=== PATIENT | male | born 1945 | race Caucasian/White ===

== ENCOUNTER 2017-05-26 12:29 | Emergency (ER) | payer OTHER ==
[2017-05-26 14:06] LABS: Absolute Lymphocytes (CBC) 1.6 K/uL (0.7-4.9); Absolute Monocytes 0.4 K/uL (0.1-1.3); Absolute Neutrophil 4.1 K/uL (1.8-8.0); Eosinophils % 1.1 % (0-4.4); Hematocrit 44.3 % (39.6-49.0); Lymphocytes % 25.2 % (15.3-44.8); MCV 92.1 fL (80-100); MPV 8.8 fL (7.6-11.3); RBC Red Blood Cell Count 4.81 M/uL (4.33-5.43)
[2017-05-26 14:12] LABS: Potassium 3.6 mEq/L (3.6-5.0)
--- NOTE | 2017-05-26 15:25 | ER ---
Nurse's Notes [facility] Name: Bryon Escobar Age: 71 yrs Sex: Male : 1945 Arrival Date: 05/26/2017 Time: 12:39 Bed 13 Private MD: Diagnosis: Essential (primary) hypertension Presentation: 05/26 12:54 Presenting complaint: Patient states: [facility] were tw2 thinking i was having a heart attack". Transition of care: patient was not received from another setting of care. Onset of symptoms was May 26, 2017. Care prior to arrival: None. 12:54 Method Of Arrival: Wheelchair tw2 12:54 Acuity: ALEJANDRA 3 tw2 Historical: - Allergies: 12:57 PENICILLINS; tw2 - Home Meds: 12:57 hydrochlorothiazide 25 mg Oral tab 1 tab once daily [Active]; finasteride 5 mg oral tab tw2 1 tab once daily [Active]; - PMHx: 12:57 Hypertension; sebaceous cyst; bph; tw2 - Immunization history:: Adult Immunizations up to date. - Social history:: Smoking status: Patient uses tobacco products, smokes one-half pack cigarettes per day. Screenin:47 Abuse screen: Denies threats or abuse. Nutritional screening: No deficits noted. ap3 Tuberculosis screening: No symptoms or risk factors identified. Fall Risk None identified. Assessment: 13:46 General: Appears in no apparent distress. slender, Behavior is calm, cooperative. Pain: ap3 Denies pain. Neuro: Level of Consciousness is awake, alert, obeys commands, Oriented to person, place, time, situation. Cardiovascular: Heart tones S1 S2 present Patient's skin is warm and dry. Respiratory: Airway is patent Breath sounds are clear bilaterally. GI: Bowel sounds present X 4 quads. : Reports urgency, since 05/23/2017. EENT: No signs and/or symptoms were reported regarding the EENT system. Derm: Skin is pink, warm \\T\\ dry. Bruising that is dark purple, on right arm and left arm. Musculoskeletal: No signs and/or symptoms reported regarding the musculoskeletal system. 14:30 Reassessment: Patient resting in bed, eyes closed. Respirations even and unlabored. ap3 side rails up X's 1. Call cloud within reach. Will continue to monitor. 15:15 Reassessment: Patient is alert, oriented x 3, equal unlabored respirations, skin ap3 warm/dry/pink. Vital Signs: 12:55 BP 160 / 92; Pulse 57; Resp 16; Temp 98.0(O); Pulse Ox 99% on R/A; Weight 62.14 kg (M); tw2 Height 5 ft. 7 in. (170.18 cm); Pain 0/10; 13:59 BP 173 / 94; Pulse 58; Pulse Ox 100% on R/A; ap3 15:37 BP 166 / 94; Pulse 55; Pulse Ox 97% on R/A; ap3 12:55 Body Mass Index 21.46 (62.14 kg, 170.18 cm) tw2 ED Course: 12:39 Patient arrived in ED. mr 12:55 Triage completed. tw2 12:58 Arm band placed on. tw2 13:00 Andrez Pérez PA is PHCP. jr8 13:00 Clem Devine MD is Attending Physician. jr8 13:21 Vik Joyner, NANDA is Primary Nurse. ae1 13:47 Patient has correct armband on for positive identification. Call light in reach. Side ap3 rails up X 1. Pulse ox on. NIBP on. 13:49 Missed attempt(s): 20 gauge in left antecubital area. Bleeding controlled, band aid ap3 applied, catheter tip intact. 13:52 Basic Metabolic Panel Sent. ap3 13:52 CBC with Diff Sent. ap3 13:52 Troponin (emerg Dept Use Only) Sent. ap3 15:06 EKG done, by bomb technician. reviewed by Andrez VASQUEZ. at1 15:37 No provider procedures requiring assistance completed. Patient did not have IV access ap3 during this emergency room visit. Administered Medications: No medications were administered Outcome: 15:24 Discharge ordered by . jr8 15:38 Discharged to home ambulatory. ap3 15:38 Condition: stable 15:38 Discharge instructions given to patient, Instructed on discharge instructions, follow up and referral plans. Demonstrated understanding of instructions. 15:47 Patient left the ED. ap3 16:07 Attestation : I agree with the charting done by Luz Maria Ribera, director industrial nursing. . ae1 Signatures: Jillian Bradley Josh, PA PA jr8 Luz Maria birmingham, pot annealer EKG Tat1 Alyson Smith, RN RN tw2 Vik Joyner RN RN ae1 Luz Maria Ribera ap3
--- NOTE | 2017-05-26 15:25 | EDPHYS ---
Physician Documentation [facility] Name: Bryon Escobar Age: 71 yrs Sex: Male : 1945 Arrival Date: 05/26/2017 Time: 12:39 Bed 13 Private MD: ED Physician Clem Devine HPI: 05/26 14:35 This 71 yrs old Male presents to ER via Wheelchair with complaints of jr8 Abnormal Lab Results. 14:35 Patient was at [place] for routine f/u and blood work. Was found to be hypertensive. Denies jr8 chest pain, shortness of breath, nausea, dizziness, weakness, numbness, or tingling. Was sent to ED here because they were concerned that he had EKG changes indicative of an DE. Onset: The symptoms/episode began/occurred acutely, today. Severity of symptoms: At their worst the symptoms were mild in the emergency department the symptoms are unchanged. The patient has not experienced similar symptoms in the past. The patient has been recently seen by a physician:. Historical: - Allergies: 12:57 PENICILLINS; tw2 - Home Meds: 12:57 hydrochlorothiazide 25 mg Oral tab 1 tab once daily [Active]; finasteride 5 mg oral tab tw2 1 tab once daily [Active]; - PMHx: 12:57 Hypertension; sebaceous cyst; bph; tw2 - Immunization history:: Adult Immunizations up to date. - Social history:: Smoking status: Patient uses tobacco products, smokes one-half pack cigarettes per day. ROS: 14:35 Eyes: Negative for injury, pain, redness, and discharge, ENT: Negative for injury, jr8 pain, and discharge, Neck: Negative for injury, pain, and swelling, Cardiovascular: Negative for chest pain, palpitations, and edema, Respiratory: Negative for shortness of breath, cough, wheezing, and pleuritic chest pain, Abdomen/GI: Negative for abdominal pain, nausea, vomiting, diarrhea, and constipation, Back: Negative for injury and pain, MS/Extremity: Negative for injury and deformity, Skin: Negative for injury, rash, and discoloration, Neuro: Negative for headache, weakness, numbness, tingling, and seizure. Exam: 14:35 Head/Face: Normocephalic, atraumatic. Eyes: Pupils equal round and reactive to light, jr8 extra-ocular motions intact. Lids and lashes normal. Conjunctiva and sclera are non-icteric and not injected. Cornea within normal limits. Periorbital areas with no swelling, redness, or edema. ENT: Nares patent. No nasal discharge, no septal abnormalities noted. Tympanic membranes are normal and external auditory canals are clear. Oropharynx with no redness, swelling, or masses, exudates, or evidence of obstruction, uvula midline. Mucous membranes moist. Neck: Trachea midline, no thyromegaly or masses palpated, and no cervical lymphadenopathy. Supple, full range of motion without nuchal rigidity, or vertebral point tenderness. No Meningismus. Chest/axilla: Normal chest wall appearance and motion. Nontender with no deformity. No lesions are appreciated. Cardiovascular: Regular rate and rhythm with a normal S1 and S2. No gallops, murmurs, or rubs. Normal PMI, no JVD. No pulse deficits. Respiratory: Lungs have equal breath sounds bilaterally, clear to auscultation and percussion. No rales, rhonchi or wheezes noted. No increased work of breathing, no retractions or nasal flaring. Abdomen/GI: Soft, non-tender, with normal bowel sounds. No distension or tympany. No guarding or rebound. No evidence of tenderness throughout. Back: No spinal tenderness. No costovertebral tenderness. Full range of motion. Skin: Warm, dry with normal turgor. Normal color with no rashes, no lesions, and no evidence of cellulitis. MS/ Extremity: Pulses equal, no cyanosis. Neurovascular intact. Full, normal range of motion. Neuro: Awake and alert, GCS 15, oriented to person, place, time, and situation. Cranial nerves II-XII grossly intact. Motor strength 5/5 in all extremities. Sensory grossly intact. Cerebellar exam normal. Normal gait. Vital Signs: 12:55 BP 160 / 92; Pulse 57; Resp 16; Temp 98.0(O); Pulse Ox 99% on R/A; Weight 62.14 kg (M); tw2 Height 5 ft. 7 in. (170.18 cm); Pain 0/10; 13:59 BP 173 / 94; Pulse 58; Pulse Ox 100% on R/A; ap3 15:37 BP 166 / 94; Pulse 55; Pulse Ox 97% on R/A; ap3 12:55 Body Mass Index 21.46 (62.14 kg, 170.18 cm) tw2 MDM: 13:00 Patient medically screened. jr8 14:35 Data reviewed: vital signs, nurses notes, lab test result(s), EKG, radiologic studies, jr8 plain films. Data interpreted: Pulse oximetry: on room air is 100 %. Interpretation: normal. Counseling: I had a detailed discussion with the patient and/or guardian regarding: the historical points, exam findings, and any diagnostic results supporting the discharge/admit diagnosis, lab results, radiology results, the need for outpatient follow up, a entertainment reporter, a family practitioner, to return to the emergency department if symptoms worsen or persist or if there are any questions or concerns that arise at home. 14:39 ED course: Patient remains stable in ED. Continues to be asymptomatic. Blood pressure jr8 at reasonable level. No acute findings on blood work or EKG to indicate DE . 05/26 13:09 Order name: Troponin (emerg Dept Use Only); Complete Time: 14:27 jr8 05/26 13:09 Order name: CBC with Diff; Complete Time: 14:27 jr8 05/26 13:09 Order name: EKG - Nurse/Tech; Complete Time: 15:36 jr8 05/26 13:09 Order name: EKG; Complete Time: 13:10 jr8 05/26 13:09 Order name: Basic Metabolic Panel; Complete Time: 14:27 jr8 Administered Medications: No medications were administered Disposition: 17:58 Co-signature as Attending Physician, Clem Devine MD. rn Disposition: 05/26/17 15:24 Discharged to Home. Impression: Essential (primary) hypertension. - Condition is Stable. - Discharge Instructions: Hypertension, Heart Attack, Heart Disease Prevention. - Medication Reconciliation Form, Thank You Letter, Antibiotic Education, Prescription Opioid Use form. - Follow up: Private Physician; When: 5 - 6 days; Reason: Recheck today's complaints, Continuance of care, Re-evaluation by your physician. - Problem is new. - Symptoms have improved. Signatures: Dispatcher [employer] EDMS Clem Devine MD MD rn Roszak, Josh, PA PA jr8 Alyson Smith RN RN tw2 Luz Maria Ribera ap3
--- NOTE | 2017-05-27 08:01 | EKG ---
Test Date: 2017-05-26 Test Time: 14:52:15 Skidder Operator: VAUGHN/ MEASUREMENT RESULTS: Intervals: Rate: 60 OH: 160 QRSD: 94 QT: 456 QTc: 456 [place]: P: 68 OH: 160 QRS: 57 T: 94 INTERPRETIVE STATEMENTS: Normal sinus rhythm Moderate voltage criteria for LVH, may be normal variant ST & T wave abnormality, consider lateral ischemia Abnormal ECG No previous ECG available for comparison Electronically Signed On 05-27-17 07:59:24 CDT by Malik Brumfield
== END 2017-05-26 15:47 | disposition home or self-care (01) ==
LOC: ER 12:29
DX: I10 Essential (primary) hypertension (principal); Z88.0 Allergy status to penicillin
CPT/HCPCS: 36415; 80048; 84484; 85025; 93005; 99283

== ENCOUNTER 2020-01-25 08:07 | Inpatient (IN) | payer OTHER ==
--- NOTE | 2020-01-25 08:42 | RAD REPORT ---
EXAM DESCRIPTION: CT - Ct Stroke Brain Wo Cont - 01/25/2020 8:33 am CLINICAL HISTORY: NUMBNESS COMPARISON: No comparisons TECHNIQUE: Axial 5 millimeter thick images of the head were obtained without IV contrast. All CT scans are performed using dose optimization technique as appropriate and may include automated exposure control or mA/KV adjustment according to patient size. FINDINGS: No intracranial hemorrhage, mass, or cerebral edema. No acute cortical based infarction. N o cortical edema or sulcal effacement. No extra-axial fluid collections. Brock matter-white matter di fferentiation is preserved.Atrophy changes are mild for age. Ventricles are in proportion to the volu me loss. Patchy diminished attenuation in the cerebral white matter and basal ganglia most likely chr onic ischemic change. Thalamus and brainstem appear spared any significant chronic ischemic change. Visualized portions of the mastoid air cells, paranasal sinuses, and orbits are unremarkable. Findings telephoned to Dr Montez 0838 hours. IMPRESSION: No CT evidence of acute intracranial process. Patient has atrophy and mild chronic ischemic change which could potentially mask nonhemorrhagic CVA.
--- OUTSIDE RECORDS SUMMARY | 2020-01-25 08:54 | XMS REPORT | Continuity of Care Document ---
:1945 Author Organization [facility] t Address [address] [place] [address] Care Team Providers Name Role Phone Alicea DO Attending Clinician Doctor Unassigned, Name Attending Clinician Unavailable Problems This patient has no known problems. Allergies, Adverse Reactions, Alerts This patient has no known allergies or adverse reactions. Medications This patient has no known medications. Procedures This patient has no known procedures. Encounters Start End Encounter Admission Attending Care Care Encounter Source Date/Time Date/Time Type Type Clinicians Facility Department ID 2018-09-29 2018-09-29 Emergency Singer [facility] [id number] 09:17:29 12:47:00 Leighton Hooks [id number] [place] [id number] [place] [id number] 2018-09-29 2018-09-29 Orders Doctor VENTURA [id number] 00:00:00 00:00:00 Only UnassignedJESUS [id number] [place] [facility] [id number] Results This patient has no known results.
[2020-01-25 09:13] LABS: Potassium 4.5 mmol/L (3.5-5.1)
[2020-01-25 09:22] LABS: Absolute Lymphocytes (CBC) 1.9 K/uL (0.7-4.9); Basophils % 1.2 % (0-1.3); Lymphocytes % 30.9 % (15.3-44.8); MPV 9.7 fL (7.6-11.3)
[2020-01-25] MEDS ORDERED: NA CHLORIDE 0.9% 1,000 ML ONE ×2 (09:34→17:33)
[2020-01-25] MEDS ORDERED: DIAZEPAM 10 MG/2 ML INJ SYRINGE ONE (09:34)
[2020-01-25 09:41] LABS: Protime INR 0.92
--- NOTE | 2020-01-25 09:49 | RAD REPORT ---
EXAM DESCRIPTION: RAD - Chest Single View - 01/25/2020 8:56 am CLINICAL HISTORY: MALAISE COMPARISON: None TECHNIQUE: AP portable chest image was obtained 01/25/2020 8:56 am . FINDINGS: No peripheral mass or consolidation of the lung parenchyma. Increased density in the upper midline chest is usually summation of vasculature. Thyroid or anterior mediastinal mass cannot be ex cluded. No comparison available. Heart and vasculature are normal. No measurable pleural effusion and no pneumothorax. No acute bony abnormality seen. No acute aortic findings suspected. Small mass dens ity in the low midline chest is probably hiatal hernia. IMPRESSION: No acute cardiopulmonary finding seen. Increased density in the midline upper chest is probably summation artifact of normal vasculature. In trathoracic thyroid mass or anterior superior mediastinal mass cannot be excluded. Follow-up CT chest imaging is recommended in the absence of any comparison imaging.
--- NOTE | 2020-01-25 10:47 | ER ---
Nurse's Notes [facility] Name: Bryon Escobar Age: 74 yrs Sex: Male : 1945 Arrival Date: 01/25/2020 Time: 08:09 Bed 25 Private MD: Diagnosis: Other transient cerebral ischemic attacks and related syndromes Presentation: 01/24 08:17 Chief complaint: Dizziness since last night, right sided facial numbness adn left sided mg2 weakness upon waking today. Last known normal was 9pm last night. Coronavirus screen: At this time, the client does not indicate any symptoms associated with coronavirus-19. Ebola Screen: No symptoms or risks identified at this time. Initial Sepsis Screen: Does the patient meet any 2 criteria? No. Patient's initial sepsis screen is negative. Does the patient have a suspected source of infection? No. Patient's initial sepsis screen is negative. Risk Assessment: Do you want to hurt yourself or someone else? Patient reports no desire to harm self or others. Onset of symptoms was January 24, 2020. 08:17 Method Of Arrival: Wheelchair mg2 08:17 Acuity: ALEJANDRA 3 mg2 08:21 An acute neurological deficit is present. mg2 Triage Assessment: 12:23 General: Appears Behavior is. ca1 12:24 Pain:. ca1 Stroke Activation: Symptom onset > 6 hours Physician: Stroke Attending; Name: ; Notified At: ; Arrived At: Physician: Chief Stroke Resident; Name: ; Notified At: ; Arrived At: Physician: Stroke Resident; Name: ; Notified At: ; Arrived At: Physician: ED Attending; Name: ; Notified At: ; Arrived At: Physician: ED Resident; Name: ; Notified At: ; Arrived At: Historical: - Allergies: 08:19 PENICILLINS; mg2 - PMHx: 08:19 BPH; Hypertension; sebaceous cyst; mg2 - Immunization history:: Adult Immunizations up to date. - Social history:: Smoking status: Patient denies any tobacco usage or history of. Patient/guardian denies using alcohol, street drugs, The patient lives with family. - Family history:: not pertinent. Screenin:40 Abuse screen: Denies threats or abuse. Denies injuries from another. Nutritional sg screening: No deficits noted. Tuberculosis screening: No symptoms or risk factors identified. Never had TB. Fall Risk None identified. Assessment: 08:43 VAN Scoring: Arm Drift: Patients demonstrates NO arm weakness. Patient is VAN Negative. sg The patient has not been NPO before screening. The patient is alert, and able to follow commands. The patient does not exhibit slurred or garbled speech. The patient is not exhibiting difficulty speaking. The patient does not exhibit difficulty understanding words. The patient is able to swallow own secretions with no drooling or need for suction. Patient tolerated one teaspoon of water. No drooling, immediate coughing, gurgling, or clearing of the throat was noted. The patient tolerated 90mL of water. No drooling, immediate coughing, gurgling, or clearing of the throat was noted. The patient passed the bedside swallow screening. Oral medications may be given as ordered. Contact Physician for further diet orders. Provider notified of bedside swallow screening results: Elia Crews MD. T-PA (Activase) Screening:. Neuro: Level of Consciousness is awake, alert, obeys commands, Oriented to person, place, time, Speech is normal, Facial symmetry appears normal. Respiratory: Airway is patent Respiratory effort is even, unlabored, Respiratory pattern is regular, symmetrical. Derm: Skin is pink, warm \T\ dry. 12:06 Reassessment: Patient appears in no apparent distress at this time. Patient and/or iw family updated on plan of care and expected duration. Pain level reassessed. Patient is alert, oriented x 3, equal unlabored respirations, skin warm/dry/pink. 12:26 Reassessment: Patient appears in no apparent distress at this time. Patient and/or ca1 family updated on plan of care and expected duration. Pain level reassessed. Patient is alert, oriented x 3, equal unlabored respirations, skin warm/dry/pink. 13:25 Reassessment: Patient appears in no apparent distress at this time. Patient and/or ca1 family updated on plan of care and expected duration. Pain level reassessed. Patient is alert, oriented x 3, equal unlabored respirations, skin warm/dry/pink. Vital Signs: 08:17 BP 177 / 84; Pulse 65; Resp 16; Temp 98.2; Pulse Ox 98% on R/A; Pain 0/10; mg2 09:46 BP 141 / 81; Pulse 51; Resp 16; Pulse Ox 96% on 2 lpm NC; iw 12:26 BP 145 / 85; Pulse 53; Resp 16 S; Pulse Ox 99% on R/A; ca1 13:25 BP 141 / 77; Pulse 64; Resp 17 S; Pulse Ox 97% on R/A; ca1 14:06 Weight 56.7 kg; Height 5 ft. 7 in. (170.18 cm) (R); ca1 14:06 Body Mass Index 19.58 (56.70 kg, 170.18 cm) ca1 NIH Stroke Scale Scores: 08:43 NIHSS Score: 1 ED Course: 08:09 Patient arrived in ED. rg4 08:17 medical photographer on. Pulse ox on. NIBP on. sg 08:17 Patient has correct armband on for positive identification. Bed in low position. Call sg light in reach. Side rails up X2. Warm blanket given. Head of bed elevated. 08:19 Triage completed. mg2 08:19 Arm band placed on. mg2 08:20 Missed attempt(s): 20 gauge in left forearm. Bleeding controlled, band aid applied, sg catheter tip intact. 08:21 Elia Crews MD is Attending Physician. ma2 08:32 CT Stroke Brain w/o Contrast In Process Unspecified. EDMS 08:35 EKG done, by ED staff, reviewed by Elia Crews MD. sg 08:40 No provider procedures requiring assistance completed. Initial lab(s) drawn, by me, sg sent to lab. Inserted saline lock: 22 gauge in left antecubital area, using aseptic technique. Blood collected. 08:43 Alexei Theodore RN is Primary Nurse. sg 08:56 Stroke CXR 1 View In Process Unspecified. EDMS 09:40 Anna Sargent, RN is Primary Nurse. iw 10:01 CT Chest W/ Con In Process Unspecified. EDMS 10:47 Jeff Devine MD is Hospitalizing Provider. ma2 12:57 Diet tray given. jp3 14:57 Patient admitted, IV remains in place. ca1 19:10 Primary Nurse role handed off by Anna Sargent, RN mw2 Administered Medications: 09:40 Drug: NS 0.9% 1000 ml Route: IV; Rate: 1 bolus; Site: left antecubital; iw 09:40 Drug: Valium 5 mg {Note: 2.5 mg given .} Route: IVP; Site: left antecubital; iw 10:54 Not Given (pt ttok 325 ASA this morning ): Aspirin Chewable Tablet 324 mg PO once; 81 iw mg tablets x 4 Outcome: 10:47 Decision to Hospitalize by Provider. ma2 14:57 Admitted to ER Hold. [facility]. ca1 14:57 Condition: stable 14:57 Instructed on the need for admit. 12 01:49 Patient left the ED. mw2 NIH Stroke Scale - NIH Stroke Score Date: 01/25/2020 Time: 08:43 Total Score = 1 1a. Level of Consciousness (LOC) - 0(Alert) 1b. Level of Consciousness (LOC) (Year \T\ Age) - 0(Both) 1c. LOC Commands (Open \T\ Closes Eyes/Team Facilitator) - 0(Both) 2. Best Gaze (Lateral Gaze Paresis) - 0(Normal) 3. Visual Field Loss - 0(No visual loss) 4. Facial Palsy - 1(Minor Paralysis) 5a. Left Arm: Motor (10-second hold) - 0(No drift) 5b. Right Arm: Motor (10-second hold) - 0(No drift) 6a. Left Leg: Motor (5-second hold - always test supine) - 0(No drift) 6b. Right Leg: Motor (5-second hold - always test supine) - 0(No drift) 7. Limb Ataxia (finger/nose \T\ heel/felipe - test with eyes open) - 0(Absent) 8. Sensory Loss (pinprick arms/legs/face) - 0(Normal) 9. Best Language: Aphasia (description/naming/reading) - 0(No aphasia) 10. Dysarthria (speech clarity - read or repeat words) - 0(Normal) 11. Extinction and Inattention (visual/tactile/auditory/spatial/personal) - 0(No abnormality) Initials: sg Signatures: Dispatcher [employer] Alexei Pederson RN RN sg Anna Sargent RN RN iw Malena Tejeda Mohammad, MD MD ma2 Rodolfo Patel mw2 Wes Holt RN RN mg2 Andrés Cox jp3 Emily Miller RN RN ca1
--- NOTE | 2020-01-25 10:47 | EDPHYS ---
Physician Documentation [facility] Name: Bryon Escobar Age: 74 yrs Sex: Male : 1945 Arrival Date: 01/25/2020 Time: 08:09 Bed 25 Private MD: ED Physician Elia Crews HPI: 01/24 10:43 This 74 yrs old Male presents to ER via Wheelchair with complaints of Trouble ma2 Walking, Shaking. 10:43 The patient presents to the emergency department with a speech or higher order brain ma2 function problem, difficult walking. Onset: The symptoms/episode began/occurred suddenly, 12 hour(s) ago. Associated signs and symptoms: Pertinent negatives: dizziness, neck stiffness, seizure, near-syncope, loss of vision. Severity of symptoms: At their worst the symptoms were moderate in the emergency department the symptoms have resolved. Current symptoms: Currently, the patient is not experiencing any symptoms. The patient has not experienced similar symptoms in the past. Historical: - Allergies: 08:19 PENICILLINS; mg2 - PMHx: 08:19 BPH; Hypertension; sebaceous cyst; mg2 - Immunization history:: Adult Immunizations up to date. - Social history:: Smoking status: Patient denies any tobacco usage or history of. Patient/guardian denies using alcohol, street drugs, The patient lives with family. - Family history:: not pertinent. ROS: 10:43 Constitutional: Negative for fever, chills, and weight loss. ma2 10:43 All other systems are negative. Exam: 10:43 Constitutional: This is a well developed, well nourished patient who is awake, alert, ma2 and in no acute distress. Chest/axilla: Normal chest wall appearance and motion. Nontender with no deformity. No lesions are appreciated. Cardiovascular: Regular rate and rhythm with a normal S1 and S2. No gallops, murmurs, or rubs. Normal PMI, no JVD. No pulse deficits. Respiratory: Lungs have equal breath sounds bilaterally, clear to auscultation and percussion. No rales, rhonchi or wheezes noted. No increased work of breathing, no retractions or nasal flaring. Abdomen/GI: Soft, non-tender, with normal bowel sounds. No distension or tympany. No guarding or rebound. No evidence of tenderness throughout. MS/ Extremity: Pulses equal, no cyanosis. Neurovascular intact. Full, normal range of motion. Neuro: has non intentional tremor, othewrwise Awake and alert, GCS 15, oriented to person, place, time, and situation. Cranial nerves II-XII grossly intact. Motor strength 5/5 in all extremities. Sensory grossly intact. Cerebellar exam normal. Normal gait. Vital Signs: 08:17 BP 177 / 84; Pulse 65; Resp 16; Temp 98.2; Pulse Ox 98% on R/A; Pain 0/10; mg2 09:46 BP 141 / 81; Pulse 51; Resp 16; Pulse Ox 96% on 2 lpm NC; iw 12:26 BP 145 / 85; Pulse 53; Resp 16 S; Pulse Ox 99% on R/A; ca1 13:25 BP 141 / 77; Pulse 64; Resp 17 S; Pulse Ox 97% on R/A; ca1 14:06 Weight 56.7 kg; Height 5 ft. 7 in. (170.18 cm) (R); ca1 14:06 Body Mass Index 19.58 (56.70 kg, 170.18 cm) ca1 NIH Stroke Scale Scores: 08:43 NIHSS Score: 1 sg MDM: 08:21 Patient medically screened. ma2 10:43 Data reviewed: vital signs, nurses notes. Counseling: I had a detailed discussion with ma2 the patient and/or guardian regarding: the historical points, exam findings, and any diagnostic results supporting the discharge/admit diagnosis, the presence of at least one elevated blood pressure reading (>120/80) during this emergency department visit, the need for outpatient follow up. Response to treatment: the patient's symptoms have resolved after treatment. ED course: patient had slurred speech and left sided weakness that started 12 hrs ago and resolved this morning prior to er presentation , he also states left sided facial numbness, exam is wnl except tremor that is old, ct head with no acute event, discussed with dr. manrique for possible tia he will see him in the hospital . 01/24 08:28 Order name: Basic Metabolic Panel; Complete Time: 09:52 01/24 08:28 Order name: CBC with Diff sg 01/24 08:28 Order name: Protime (+inr) sg 01/24 08:28 Order name: Ptt, Activated sg 12/09 09:18 Order name: Glucose, Ancillary Testing; Complete Time: 09:52 EDMS 01/24 09:24 Order name: CBC with Automated Diff; Complete Time: 09:52 EDMS 01/24 10:14 Order name: Protime (+INR); Complete Time: 10:15 EDMS 01/24 10:14 Order name: PTT, Activated Partial Thromb; Complete Time: 10:15 EDMS 01/24 11:28 Order name: COVID-19 01/24 11:32 Order name: TSH wy2 01/24 11:32 Order name: T4 Free wy2 01/24 11:43 Order name: CORONAVIRUS EDSC 01/24 12:39 Order name: T4 Free EDMS 01/24 12:39 Order name: Thyroid Stimulating Hormone EDMS 01/24 08:28 Order name: CT Stroke Brain w/o Contrast; Complete Time: 08:46 01/24 08:28 Order name: Stroke CXR 1 View; Complete Time: 09:52 01/24 08:28 Order name: EKG; Complete Time: 08:29 01/24 09:46 Order name: CT Chest W/ Con; Complete Time: 11:30 [facility] 01/24 11:19 Order name: Diet Regular; Complete Time: 11:20 01/24 12:26 Order name: MRA Head Wo Cont EDSC 01/24 12:26 Order name: MRA Neck With Cont EDSC 01/24 12:26 Order name: Stroke Protocol EDSC 01/24 12:29 Order name: CONS Physician Consult EDSC 01/24 12:49 Order name: SARS-COV-2 RT PCR EDSC 01/24 18:01 Order name: MRI EDSC 01/24 18:14 Order name: MRI EDSC 01/24 19:22 Order name: US EDSC 01/24 08:28 Order name: Accucheck; Complete Time: 09:07 01/24 08:28 Order name: Cardiac monitoring; Complete Time: 08:46 01/24 08:28 Order name: EKG - Nurse/Tech; Complete Time: 09:08 01/24 08:28 Order name: IV Saline Lock; Complete Time: 08:46 sg 01/24 08:28 Order name: Labs collected and sent; Complete Time: 08:46 01/24 08:28 Order name: NPO; Complete Time: 08:46 01/24 08:28 Order name: O2 Per Protocol; Complete Time: 08:46 sg 01/24 08:28 Order name: O2 Sat Monitoring; Complete Time: 01/24 08:28 Order name: Stroke Swallow Screen; Complete Time: 08: sg Administered Medications: 09:40 Drug: NS 0.9% 1000 ml Route: IV; Rate: 1 bolus; Site: left antecubital; iw 09:40 Drug: Valium 5 mg {Note: 2.5 mg given .} Route: IVP; Site: left antecubital; iw 10:54 Not Given (pt ttok 325 ASA this morning ): Aspirin Chewable Tablet 324 mg PO once; 81 iw mg tablets x 4 Disposition: 01/25/20 10:47 Hospitalization ordered by Jeff Devine for Observation. Preliminary diagnosis is Other transient cerebral ischemic attacks and related syndromes. - Bed requested for Telemetry/MedSurg (observation). - Status is Observation. mw2 - Condition is Stable. - Problem is new. - Symptoms are unchanged. NIH Stroke Scale - NIH Stroke Score Date: 01/25/2020 Time: 08:43 Total Score = 1 1a. Level of Consciousness (LOC) - 0(Alert) 1b. Level of Consciousness (LOC) (Year \T\ Age) - 0(Both) 1c. LOC Commands (Open \T\ Closes Eyes/Commercial Roofing Estimator) - 0(Both) 2. Best Gaze (Lateral Gaze Paresis) - 0(Normal) 3. Visual Field Loss - 0(No visual loss) 4. Facial Palsy - 1(Minor Paralysis) 5a. Left Arm: Motor (10-second hold) - 0(No drift) 5b. Right Arm: Motor (10-second hold) - 0(No drift) 6a. Left Leg: Motor (5-second hold - always test supine) - 0(No drift) 6b. Right Leg: Motor (5-second hold - always test supine) - 0(No drift) 7. Limb Ataxia (finger/nose \T\ heel/felipe - test with eyes open) - 0(Absent) 8. Sensory Loss (pinprick arms/legs/face) - 0(Normal) 9. Best Language: Aphasia (description/naming/reading) - 0(No aphasia) 10. Dysarthria (speech clarity - read or repeat words) - 0(Normal) 11. Extinction and Inattention (visual/tactile/auditory/spatial/personal) - 0(No abnormality) Initials: sg Signatures: Dispatcher [employer] ED Lore Allison Alexei Richmond, RN RN sg Anna Sargent, RN RN iw Elena Shrestha, RN RN tl1 Elia Crews MD MD ma2 Rodolfo Patel mw2 Wes Holt RN RN mg2 Corrections: (The following items were deleted from the chart) 14:43 10:47 Hospitalization Ordered by Jeff Devine MD for Observation. Preliminary bd diagnosis is Other transient cerebral ischemic attacks and related syndromes. Bed requested for Telemetry/MedSurg (observation). Status is Observation. Condition is Stable. Problem is new. Symptoms are unchanged. ma2 01/25 01:45 1209 14:43 01/25/2020 10:47 Hospitalization Ordered by Jeff Devine MD for tl1 Observation. Preliminary diagnosis is Other transient cerebral ischemic attacks and related syndromes. Bed requested for [facility] ER HOLD. Status is Observation. Condition is Stable. Problem is new. Symptoms are unchanged. bd 01/25 01:49 01:45 01/25/2020 10:47 Hospitalization Ordered by Jeff Devine MD for mw2 Observation. Preliminary diagnosis is Other transient cerebral ischemic attacks and related syndromes. Bed requested for Telemetry/MedSurg (observation). Status is Observation. Condition is Stable. Problem is new. Symptoms are unchanged. tl1
--- NOTE | 2020-01-25 10:50 | RAD REPORT ---
EXAM DESCRIPTION: CT - Thorax W/ Con - 01/25/2020 10:01 am CLINICAL HISTORY: mediastinal fullness COMPARISON: No comparisons TECHNIQUE: Dynamically enhanced 5 mm thick images of the chest were obtained during administration o f 100 mL non-ionic IV contrast. All CT scans are performed using dose optimization technique as appropriate and may include automated exposure control or mA/KV adjustment according to patient size. FINDINGS: In the right-side base of the neck and extending into the mediastinum down to the aortic a rch level there is a 9 cm CC x 6 cm AP x 5 cm TR mass. This shows a heterogeneous enhancement pattern primarily along the periphery of the mass. Central potion of the mass is hypodense with patchy inter nal enhancement. Mass appears to arise from the right thyroid lobe. This is larger and more heterogen eous than typical asymmetric goiter. Thyroid malignancy should be considered. The small left thyroid lobe shows minimal 12 mm nodule at its inferior margin. The large thyroid mass causes left deviation of the trachea. Carotid vasculature is displaced by the large mass but otherwise unremarkable. Lung chamberlain are hyperexpanded. An 8 x 3 mm juxtapleural nodule in the anterior right lung base is pre sent not likely of significance. Minimal scarring changes are present in the posteromedial left lower lung field. No pleural thickening or pleural effusion. No pneumothorax. No chest wall mass or abnorm al axillary lymphadenopathy. No hilar mass or lymphadenopathy. No other mediastinal masses identified. Aorta and pulmonary arteria l tree enhance normally. No cardiomegaly or pericardial effusion. Large hiatal hernia is present. IMPRESSION: Large 9 x 6 x 5 mm right thyroid mass extending into the upper mediastinum. This shows v arus, heterogeneous enhancement. Right thyroid malignant mass would be the diagnosis of exclusion. Enlarged heterogeneous asymmetric g oiter or nodule would be possible etiologies as well. Hyper expanded lung chamberlain consistent with COPD. Minimal scarring and nodularity present as detailed.
[2020-01-25] MEDS ORDERED: ASPIRIN 81 MG CHEWABLE TABLET ONE (10:51)
--- NOTE | 2020-01-25 12:33 | P.HP ---
Certification for Inpatient Patient admitted to: Inpatient With expected LOS: >2 Midnights Practitioner: I am a practitioner with admitting privileges, knowledge of patient current condition, hospital course, and medical plan of care. Services: Services provided to patient in accordance with Admission requirements found in Title 42 Section 412.3 of the Code of Federal Regulations Patient History Date of Service: 01/25/20 Reason for admission: CVA, slurred speech History of Present Illness: 74yo male, PMH: Hypertension, right thyroid mass presented to the ED due to right-sided facial numbness slurred speech since he woke up at approximately 6:00 a.m. this morning. He states he was in his usual state of health until yesterday evening when he felt decreased balance/unsteadiness on his feet. Around 9:00 p.m. yesterday he was pulling a cord to turn off his ceiling fan when he suddenly felt like his legs gave out under him. He had significant weakness throughout his body and was having great difficulty getting up off the floor. He eventually made it to his bed and went to sleep. When he woke up he had a right facial symptoms. His states he was very difficult to understand due to slurred speech. They also report new onset shakiness in his bilateral upper extremities. He states he woke up with this unsteadiness/decreased balance as well. He denies any weakness at this time. He initially reported to the ED that he felt his symptoms were completely resolved prior to arrival. His does report that he still continues with some very mild slurred speech. In the ED, NIH stroke score of 1 due to very mild facial palsy. CBC, BMP were all rather unremarkable. COVID negative. CT brain negative for acute intracranial process. CT chest was obtained due to chest x-ray findings mediastinal fullness. Significant for 9 x 6 x 5 cm right thyroid mass extending into the upper mediastinum. Patient reports he has had this for at least 50 years, does not feel like this is changed in size. He does endorse a 40 lb weight loss over the past 6 months. ED physician discussed the case with neurology recommended admission for further workup/evaluation of this TIA/CVA. Allergies Penicillins Allergy (Unverified 05/26/17 15:51) Unknown Home Medications: Amlodipine Besylate 1 tab PO DAILY 01/25/20 Carvedilol [Coreg] 1 tab PO BID 01/25/20 Docusate Sodium 1 cap PO DAILY 01/25/20 Finasteride 1 tab PO DAILY 01/25/20 Latanoprost/Pf [Latanoprost 0.005% Eye Drop] 1 drop EACH EYE 01/25/20 Losartan Potassium 1 tab PO BID 01/25/20 Tamsulosin [Flomax*] 1 cap PO BEDTIME 01/25/20 - Past Medical/Surgical History -: Hypertension -: BPH -: Right thyroid mass -: Hernia repair - Family History Family History: Reviewed- Non-Contributory - Social History Smoking Status: Former smoker Alcohol use: No Place of Residence: Home Review of Systems 10-point ROS is otherwise unremarkable Physical Examination - Physical Exam General: Alert, In no apparent distress, Oriented x3 HEENT: Mucous membr. moist/pink, Sclerae nonicteric Neck: Other (Large mass palpable in right base of neck) Respiratory: Clear to auscultation bilaterally, Normal air movement Cardiovascular: No edema, Regular rate/rhythm Gastrointestinal: Soft and benign, No tenderness Musculoskeletal: No tenderness Integumentary: No rashes, No significant lesion Neurological: Normal strength at 5/5 x4 extr, Sensation intact, Cranial nerves 3-12 intact, Normal affect, Abnormal speech (Very mild slurring of speech) - Studies Laboratory Data (last 24 hrs) 01/25/20 08:35: PT 10.9, INR 0.92, APTT 22.7 L 01/25/20 08:35: WBC 6.1, Hgb 13.4 L, Hct 39.0 L, Plt Count 173 01/25/20 08:35: Sodium 141, Potassium 4.5, BUN 25 H, Creatinine 1.30, Glucose 101 Assessment and Plan - Advance Directives Does patient have a Living Will: No Does patient have a Durable POA for Healthcare: No Physician Review Additional Text: Decreased balance, resolved facial numbness/weakness Involuntary shaking Hypertension BPH Right thyroid mass -CT head without acute intracranial process -discussed with Neurology, recommend admission, will obtain MRI, echocardiogram, MRA of head and neck -given the size of this right thyroid mass could be compressing the on surrounding structures/vasculature -patient states he was previously offered resection, but declined -will check TSH/free T4 -left known well was ~9:00 p.m. yesterday -aspirin, plavix, high intensity statin -Lovenox for DVT prophylaxis -swallow eval given his very slight slurring Time Spent Managing Pts Care (In Minutes): 60
[2020-01-25 12:39] LABS: Thyroid Stimulating Hormone 4.79 uIU/mL (0.360-3.740)
[2020-01-25 14:07] VITALS: BMI 19.5
[2020-01-25] MEDS ORDERED: NA CHLORIDE 0.9% 1,000 ML IV SCH (15:21)
--- NOTE | 2020-01-25 18:00 | RAD REPORT ---
EXAM DESCRIPTION: MRI - Brain W/Wo Cont - 01/25/2020 4:56 pm CLINICAL HISTORY: eval for stroke, slurred speech Headache, drowsiness, CVA symptomology COMPARISON: MRA Head Wo Cont dated 01/25/2020 TECHNIQUE: Multi-sequence, multiplanar MR imaging of the brain was performed with contrast. FINDINGS: 11 mm nonhemorrhagic acute CVA is present involving the right posterior lentiform nucleus. A few small foci of acute infarct extends superiorly from the primary infarct into the region of the right periventricular white matter. No edema or shift of midline structures. Mild periventricular and deep white matter chronic microvascular ischemic changes are present. No hemorrhage or hydrocephalus seen.. The midline structures are normally formed. Small mucous retention cyst or polyp is present inferior right maxillary antrum. Post-contrast images show no abnormal enhancement to suggest tumor or infection. IMPRESSION: 11 mm nonhemorrhagic acute CVA right posterior lentiform nucleus.
--- NOTE | 2020-01-25 18:01 | RAD REPORT ---
EXAM DESCRIPTION: MRI - MRA Head Wo Cont - 01/25/2020 4:47 pm CLINICAL HISTORY: eval for stroke, slurred speech CVA COMPARISON: Ct Stroke Brain Wo Cont dated 01/25/2020 FINDINGS: 3D noncontrast [id number] MR angiography of the [place] was performed. No aneurysm, flow-limiting stenosis or vascular malformation is seen. Forward flow seen in codominant vertebral arteries. The visualized dural venous sinuses appear patent. IMPRESSION: No significant flow abnormality of the [place] is identified.
--- NOTE | 2020-01-25 18:13 | RAD REPORT ---
EXAM DESCRIPTION: MRI - MRA Neck W/Wo Cont - 01/25/2020 5:48 pm CLINICAL HISTORY: eval for stroke, slurred speech Headache, CVA symptomology COMPARISON: Thorax W/ Con dated 01/25/2020 FINDINGS: Contrast enhance 2D [id number] MR angiography of the neck vessels was performed. Large right thyroid mass again noted. A left aortic arch is noted. Both common carotid arteries and subclavian arteries are patent. Mild narrowing of both internal carotid artery bulbs is noted without significant stenosis evident. A ntegrade flow is present in both vertebral arteries. Mild atheromatous narrowing of the distal right vertebral artery is seen. . IMPRESSION: No significant carotid stenosis is identified.
--- NOTE | 2020-01-25 19:21 | RAD REPORT ---
EXAM DESCRIPTION: US - CP - 01/25/2020 6:45 pm CLINICAL HISTORY: R CVA Headache, drowsiness COMPARISON: MRA Neck W/Wo Cont dated 01/25/2020 TECHNIQUE: Real-time sonographic evaluation of both carotid systems was performed. Doppler interroga tion was performed with waveform tracing bilaterally. FINDINGS: Normal high resistance waveforms are noted in both external carotid arteries. The common c arotid arteries and internal carotid arteries show normal low resistance waveforms. Mild hard plaque is seen involving the left carotid bulb. Peak systolic and end diastolic velocity va lues and the ICA/CCA ratios are in the non-hemodynamically significant range. Antegrade flow seen in both vertebral arteries. Large thyroid mass is again seen. IMPRESSION: Mild hard plaque left carotid bulb. No evidence of a hemodynamically significant stenosis. Large right thyroid lobe mass.
[2020-01-25] MEDS ORDERED: ATORVASTATIN 20 MG TAB PO SCH (21:00)
[2020-01-25] MEDS: FOLIC ACID 1 MG TABLET PO SCH (21:00)
[2020-01-25] MEDS: carvediloL 25 MG TAB PO SCH (21:00)
[2020-01-25] MEDS ORDERED: TAMSULOSIN 0.4 MG SR CAP PO SCH (21:00)
[2020-01-25] MEDS: ENOXAPARIN 40 MG/0.4 ML SQ SCH (21:29)
[2020-01-25] MEDS ORDERED: carvediloL 6.25 MG TAB ONE (21:39)
[2020-01-25] MEDS ORDERED: ATORVASTATIN 20 MG TAB ONE (21:39)
[2020-01-25] MEDS ORDERED: TAMSULOSIN 0.4 MG SR CAP ONE (21:39)
[2020-01-25] MEDS ORDERED: ENOXAPARIN 40 MG/0.4 ML SQ ONE (21:40)
[2020-01-25] MEDS ORDERED: FOLIC ACID 1 MG TABLET ONE (21:40)
[2020-01-26 04:11] LABS: Absolute Lymphocytes (CBC) 1.9 K/uL (0.7-4.9); Basophils % 0.8 % (0-1.3); Hematocrit 36.3 % (39.6-49.0); Lymphocytes % 26.9 % (15.3-44.8); MPV 8.8 fL (7.6-11.3); RBC Red Blood Cell Count 3.86 M/uL (4.33-5.43)
[2020-01-26 04:27] LABS: Albumin 3.6 g/dL (3.4-5.0); Magnesium 2.2 mg/dL (1.8-2.4); Potassium 3.8 mmol/L (3.5-5.1); Protein, Total 6.3 g/dL (6.4-8.2)
[2020-01-26] MEDS: FOLIC ACID 1 MG TABLET PO SCH (08:27)
[2020-01-26] MEDS: ENOXAPARIN 40 MG/0.4 ML SQ SCH (08:27)
[2020-01-26] MEDS: carvediloL 25 MG TAB PO SCH (08:27)
[2020-01-26] MEDS ORDERED: FINASTERIDE 5 MG TAB PO SCH (09:00)
[2020-01-26] MEDS ORDERED: CLOPIDOGREL 75 MG TABLET PO SCH (09:00)
[2020-01-26] MEDS ORDERED: ASPIRIN EC 81 MG TAB PO SCH (09:00)
[2020-01-26] MEDS ORDERED: AMLODIPINE 10 MG TAB PO SCH (09:00)
[2020-01-26] MEDS ORDERED: LOSARTAN POTASSIUM 50 MG TABLET PO SCH (09:00)
[2020-01-26] MEDS ORDERED: DOCUSATE NA 100 MG CAP PO SCH (09:00)
--- NOTE | 2020-01-26 11:00 | EKG ---
Test Date: 2020-01-25 Test Time: 08:58:03 Transitions Manager: SWG MEASUREMENT RESULTS: Intervals: Rate: 58 HI: 160 QRSD: 86 QT: 458 QTc: 449 [place]: P: 74 HI: 160 QRS: -2 T: 64 INTERPRETIVE STATEMENTS: Sinus bradycardia Nonspecific T wave abnormality Abnormal ECG Compared to ECG 05/26/2017 14:52:15 T-wave abnormality now present Sinus rhythm no longer present Left ventricular hypertrophy no longer present ST (T wave) deviation no longer present Possible ischemia no longer present Electronically Signed On 01-26-20 10:56:40 MANAGER PHARMAC[employer] by Obi King
[2020-01-26 12:11] VITALS: O2SAT 94
--- NOTE | 2020-01-26 15:35 | P.DS ---
Admission Date: 01/25/20 Discharge Date: 01/26/20 Disposition: DC HOME/HOME HEALTH CARE Discharge Condition: GOOD Reason for Admission: CVA, slurred speech Consultations: Neurology - Dr. Barbour Procedures: CXR (01/24): No acute cardiopulmonary finding seen. Increased density in the midline upper chest is probably summation artifact of normal vasculature. Intrathoracic thyroid mass or anterior superior mediastinal mass cannot be excluded. CT Chest (01/24): Large 9 x 6 x 5 mm right thyroid mass extending into the upper mediastinum. This shows varus, heterogeneous enhancement. Right thyroid malignant mass would be the diagnosis of exclusion. Enlarged heterogeneous asymmetric goiter or nodule would be possible etiologies as well. Hyper expanded lung chamberlain consistent with COPD CT Brain (01/24): No CT evidence of acute intracranial process. Patient has atrophy and mild chronic ischemic change which could potentially mask nonhemorrhagic CVA. MRI Brain (01/24): 11 mm nonhemorrhagic acute CVA is present involving the right posterior lentiform nucleus.A few small foci of acute infarct extends superiorly from the primary infarct into the region of the right periventricular white matter. No edema or shift of midline structures. Mild periventricular and deep white matter chronic microvascular ischemic changes are present. MRA Brain (01/24): No significant flow abnormality of the [place] is identified. MRA neck (01/24): No significant carotid stenosis is identified. Carotid U/S (01/24): Mild hard plaque left carotid bulb. No evidence of a hemodynamically significant stenosis. Echocardiogram (01/25): completed and reported as normal, however report not available at time of discharge Problem List Acute 11mm nonhemorrhagic CVA - R posterior lentiform nucleus. possible mild vascular dementia Hypertension BPH Right thyroid mass Brief History of Present Illness: 74yo male, PMH: Hypertension, right thyroid mass presented to the ED due to right-sided facial numbness slurred speech since he woke up at approximately 6:00 a.m. this morning and left sided arm/leg weakness since ~9pm the evening prior to presentation. He initially reported to the ED that he felt his symptoms were completely resolved prior to arrival. He presented >12hrs after last known well and was seen outside of the tpa window. His does report that he still continues with some very mild slurred speech. In the ED, NIH stroke score of 1 due to very mild facial palsy. CBC, BMP were all rather unremarkable. COVID negative. CT brain negative for acute intracranial process. CT chest was obtained due to chest x-ray findings mediastinal fullness. Significant for 9 x 6 x 5 cm right thyroid mass extending into the upper mediastinum. Patient reports he has had this for at least 50 years, does not feel like this is changed in size. He does endorse a 40 lb weight loss over the past 6 months. ED physician discussed the case with neurology recommended admission for further workup/evaluation of this TIA/CVA. Hospital Course: Patient was admitted, MRI, MRA of Brain and neck were obtained which were notable for acute CVA as noted above. He was evaluated by PT/OT who recommended home PT/OT. His case was discussed with neurology and patient was discharged home on aspirin, plavix, atorvastatin 40mg, and folic acid. He is to f/u with neurology in the next month. At time of discharge, patient and also brought up that patient has been forgetful of things over the past several months. Possibly has mild vascular dementia. Vital Signs/Physical Exam: Temp Pulse Resp BP Pulse Ox 97.5 F 67 16 144/73 H 96 01/26/20 12:00 01/26/20 12:00 01/26/20 12:00 01/26/20 12:00 01/26/20 12:00 General: Alert, In no apparent distress, Oriented x3 HEENT: PERRLA, EOMI, Sclerae nonicteric Respiratory: Clear to auscultation bilaterally Cardiovascular: No edema, Regular rate/rhythm Gastrointestinal: Soft and benign, No tenderness Musculoskeletal: No tenderness Integumentary: No rashes Neurological: Normal strength at 5/5 x4 extr, Cranial nerves 3-12 intact, Normal affect, Other (b/l upper extremity tremor, worse on RUE), Abnormal speech (mild slurring) Laboratory Data at Discharge: WBC 7.1 K/uL (4.3-10.9) D 01/26/20 03:57 Hgb 12.4 g/dL (13.6-17.9) L 01/26/20 03:57 Hct 36.3 % (39.6-49.0) L 01/26/20 03:57 Plt Count 170 K/uL (152-406) 01/26/20 03:57 PT 10.9 SECONDS (9.5-12.5) 01/25/20 08:35 INR 0.92 01/25/20 08:35 APTT 22.7 SECONDS (24.3-36.9) L 01/25/20 08:35 Sodium 144 mmol/L (136-145) 01/26/20 03:57 Potassium 3.8 mmol/L (3.5-5.1) 01/26/20 03:57 BUN 17 mg/dL (7-18) 01/26/20 03:57 Creatinine 0.86 mg/dL (0.55-1.3) 01/26/20 03:57 Glucose 90 mg/dL (74-106) 01/26/20 03:57 Magnesium 2.2 mg/dL (1.8-2.4) 01/26/20 03:57 Total Bilirubin 1.0 mg/dL (0.2-1.0) 01/26/20 03:57 AST 15 U/L (15-37) 01/26/20 03:57 ALT 21 U/L (12-78) 01/26/20 03:57 Alkaline Phosphatase 76 U/L (45-117) 01/26/20 03:57 Triglycerides 76 mg/dL (<150) 01/26/20 03:57 Cholesterol 132 mg/dL (<200) 01/26/20 03:57 HDL Cholesterol 60 mg/dL (40-60) 01/26/20 03:57 Cholesterol/HDL Ratio 2.20 01/26/20 03:57 Home Medications: Amlodipine Besylate 1 tab PO DAILY 01/25/20 Carvedilol [Coreg] 1 tab PO BID 01/25/20 Docusate Sodium 1 cap PO DAILY 01/25/20 Finasteride 1 tab PO DAILY 01/25/20 Latanoprost/Pf [Latanoprost 0.005% Eye Drop] 1 drop EACH EYE BEDTIME 01/25/20 Losartan Potassium 1 tab PO BID 01/25/20 Tamsulosin [Flomax*] 1 cap PO BEDTIME 01/25/20 Aspirin [Aspirin EC 81 MG] 81 mg PO DAILY 30 Days #30 tablet. 01/26/20 Atorvastatin Calcium [Lipitor*] 40 mg PO BEDTIME 30 Days #30 tab 01/26/20 Brinzolamide/Brimonidine Tart [Simbrinza 1%-0.2% Eye Drops] 1 drop EACH EYE BID 01/26/20 Clopidogrel Bisulfate [Plavix*] 75 mg PO DAILY 30 Days #30 tablet 01/26/20 Folic Acid 1 mg PO BID 30 Days #60 tablet 01/26/20 New Medications: Aspirin [Aspirin EC 81 MG] 81 mg PO DAILY 30 Days #30 tablet. Folic Acid 1 mg PO BID 30 Days #60 tablet Atorvastatin Calcium [Lipitor*] 40 mg PO BEDTIME 30 Days #30 tab Clopidogrel Bisulfate [Plavix*] 75 mg PO DAILY 30 Days #30 tablet Patient Discharge Instructions: follow up with PCP to continue to check on your blood pressure. follow up with Dr. Barbour - call to schedule appointment in the 3-4 weeks. continue home medications. new medications: aspirin 81 mg daily, plavix 75mg daily, atorvastatin 40mg at bedtime, and folic acid 1mg twice a day. Plavix (clopidogrel) is only for 1 month, after that, continue with the other 3 new medications. Diet: AHA Activity: Fall precautions Followup: Emile Barbour MD [ASSOCIATE-ACTIVE - CAN ADMIT] - NONE,NONE [Primary Care Provider] - Time spent managing pt's care (in minutes): 45
[2020-01-26 15:50] VITALS: BP 150/70; TEMP 98.1
--- NOTE | 2020-01-26 22:28 | CON ---
Date of Consultation: 01/26/2020 Reason For Consultation: Consultation called because of stroke. History Of Present Illness: Mr. Escobar is a 74-year-old right-handed patient with hyperten daysi and benign prostatic hypertrophy who initially had right facial numbness, night before his admis daysi. He came in on 01/25/2020 and today is 01/26/2020 that apparently resolved and he woke up in morning on the with left-sided weakness, upper and lower extremities. He came to the hospital outside of the window of tPA and symptoms were about 24 hours in total on onset as he was last known around 9 p.m. on the night before coming into the hospital. His brain CT scan identified atrophy and mild chronic ischemic change, but no acute ischemic or hemorrhagic change. The symptoms resolved sl ightly, but there was still weakness on the right side. Later on, on the , his brain MRI identifi ed an 11 mm nonhemorrhagic acute stroke in the right posterior lentiform nucleus, which could explain his left-sided weakness. MRA of the brain showed no significant abnormalities of the [place] and MRA of the neck showed no carotid stenosis. The patient was treated with folic acid, Plavix, aspirin, and a moderate dose statin. He was given permissive hypertension. Blood work includes a CB C with differential, cholesterol panel, basic metabolic panel, his thyroid function. His HDL cholest sanchez was 60, LDL cholesterol 57. Liver function study is normal. Creatinine normal and glucose was ranging from 90 to 101. COVID-19 was negative. Since his admission, the patient has had some improv ement in his right-sided weakness and was actually ambulating with physical therapy at the time of my evaluation. He was walking well even without an assistive device and did not have any apparent weak ness in the right leg. Right arm was very strong as well. However, he did have tremors noted in the right hand that were pill rolling in nature as he ambulated. He did have a slower gait with decreas ed stride length and decreased arm swing and his face did show decreased facial expression. Past Medical History: Benign prostatic hypertrophy and hypertension. Allergies: PENICILLIN. Past Surgical History: As indicated. Family History: Noncontributory. Review of Systems: Aside from mentioned, he denies any fevers, chills, nausea, vomiting, myalgias, arthralgias, rash, he adache, weight change, psychiatric complaints. Assessment: Mr. Escobar is a 74-year-old patient with an 11 mm right posterior lentiform acute ischem ic infarction in the setting of hypertension. The patient was not reliably taking antiplatelet medic ation. He does have features of Parkinson disease, which per the patient's actually predates hi s stroke where he has had tremors involving the right side more than left. He has LDL cholesterol le ss than 70. He has no evidence of a systemic infection. He is COVID-19 negative. He does have slig htly elevated TSH of 4.7. Plan: 1.The patient should be on aspirin and Plavix for at least 3 weeks, then switch to aspirin only. 2.Folic acid 1 mg daily. 3.Continue atorvastatin 40 mg at bedtime. 4.May restart Norvasc and Coreg long-term with systolic blood pressure goal of 120 to 130. 5.After discharge home, he may consider outpatient physical therapy if required. 6.Should be noted, his NIH Stroke Scale at this time is 0 despite his reported deficit as he is actu ally ambulating very well and has no obvious asymmetry of strength, sensation, coordination, or visua l change, although he has a chronic decrease in vision in the left eye. He has full visual chamberlain. LAMIN/CHRISTIANO Voice ID: [id number] Report ID: [id number]
--- NOTE | 2020-01-27 08:40 | ECHO ---
HEIGHT: 5 ft 7 in WEIGHT: 125 lb 0 oz DATE OF STUDY: 01/26/[address]: Jeff Devine MD 2-DIMENSIONAL: YES M.MODE: YES DOPPLER: YES COLOR FLOW: YES TDS: NO PORTABLE: NO DEFINITY: NO BUBBLE STUDY: NO DIAGNOSIS: STROKE CARDIAC HISTORY: CATHERIZATION: NO SURGERY: NO PROSTHETIC VALVE: NO PACEMAKER: NO MEASUREMENTS (cm) DIASTOLIC (NORMALS) SYSTOLIC (NORMALS) IVSd 1.1 (0.6-1.2) LA Diam 3.1 (1.9-4.0) LVEF 50% LVIDd 3.4 (3.5-5.7) LVIDs 2.6 (2.0-3.5) %FS 24% LVPWd 1.3 (0.6-1.2) Ao Diam 3.0 (2.0-3.7) 2 DIMENSIONAL ASSESSMENT: RIGHT ATRIUM: NORMAL LEFT ATRIUM: NORMAL RIGHT VENTRICLE: NORMAL LEFT VENTRICLE: NORMAL TRICUSPID VALVE: MITRAL VALVE: NORMAL PULMONIC VALVE: NORMAL AORTIC VALVE: PERICARDIAL EFFUSION: NONE AORTIC ROOT: NORMAL LEFT VENTRICULAR WALL MOTION: NORMAL DOPPLER/COLOR FLOW: NORMAL COMMENTS: NORMAL LEFT VENTRICULAR EJECTION FRACTION 55-60%. NORMAL WALL MOTION. MILD TRICUSPID AND AORTIC REGURGITATION. TECHNOLOGIST: Magno SUTHERLAND
== END 2020-01-26 16:13 | disposition home or self-care (01) | DRG 65 ==
LOC: ER 08:07 → ERHOLD 12:43 → 4TH 01-26 00:44
PROVIDERS: ADMIT Hospitalist; ATTEND Hospitalist
DX: I63.9 Cerebral infarction, unspecified (principal); G81.94 Hemiplegia, unspecified affecting left nondominant side; I10 Essential (primary) hypertension; F01.50 Vascular dementia, unspecified severity, without behavioral disturbance, psychotic disturbance, mood disturbance, and anxiety; N40.0 Benign prostatic hyperplasia without lower urinary tract symptoms; G51.0 Bell's palsy; E07.9 Disorder of thyroid, unspecified; R42 Dizziness and giddiness; R20.0 Anesthesia of skin; R29.701 NIHSS score 1; R47.81 Slurred speech; Z87.891 Personal history of nicotine dependence; Z88.0 Allergy status to penicillin; Z79.82 Long term (current) use of aspirin; Z79.02 Long term (current) use of antithrombotics/antiplatelets; Z79.899 Other long term (current) drug therapy; Z20.828 Contact with and (suspected) exposure to other viral communicable diseases
CPT/HCPCS: 36415; 70450; 70544; 70549; 70553; 71045; 71260; 80048; 80053; 80061; 82947; 83735; 84439; 84443; 85025; 85610; 85730; 93005; 93306; 93880; 94760; 96374; 97112; 97116; 97161; 97530; 99285; A9577; J1650; J3360; J7030; Q9967; U0003